=== PATIENT | female | born 1985 | race Two or more races ===

== ENCOUNTER 2022-12-21 15:38 | Emergency (ER) | payer OTHER ==
[~2022-12-21] VITALS: Ht 177.8 cm; Wt 95.3 kg
[~2022-12-21 15:38] MED LIST: SYNTHROID200 MCG PO
[2022-12-21 17:16] LABS: HEMATOCRIT 34.1 % (36.0-45.00); HEMOGLOBIN 10.8 g/dL (12.0-15.00); MEAN CELL VOLUME 77.7 fL (80.00-100.00); MEAN CORPUSCULAR HEMOGLOBIN 24.7 pg (27.00-32.0); MEAN CORPUSCULAR HGB CONC 31.7 g/dl (32.0-36.0); PLATELET COUNT 249 K/uL (150-450); RED BLOOD COUNT 4.39 M/uL (4.00-6.00); RED CELL DISTRIBUTION WIDTH 16.5 % (11.5-14.5)
[2022-12-21 17:31] LABS: INR 1.02; PROTHROMBIN TIME 10.7 SECONDS (9.0-11.5)
[2022-12-21 17:32] LABS: CALCIUM 8.7 mg/dL (8.5-10.1); CREATININE SERUM 0.9 mg/dL (0.55-1.02); GFR 70.45; POTASSIUM 4.03 mEq/L (3.5-5.1)
== END 2022-12-21 19:13 | disposition home or self-care (01) ==
LOC: ER 15:38
PROVIDERS: General Practice
DX: R51.9 Headache, unspecified (principal); Z91.013 Allergy to seafood; E03.9 Hypothyroidism, unspecified

== ENCOUNTER 2024-12-19 11:05 | Outpatient (CLI) | payer OTHER | END 2024-12-19 11:09 | disposition home or self-care (01) | LOC: MAMO-SONO 11:05 | PROVIDERS: ATTEND Obstetrics & Gynecology | DX: N60.02 Solitary cyst of left breast (principal); Z12.31 Encounter for screening mammogram for malignant neoplasm of breast ==